=== PATIENT | male | born 1980 | race Caucasian/White ===

== ENCOUNTER 2022-02-26 17:39 | Outpatient (CLI) | payer SELFPAY ==
--- NOTE | 2022-02-26 17:47 | CT_ITS ---
STUDY: CT BRAIN WITH AND WITHOUT CONTRAST REASON FOR EXAM: Male, 41 years old. MASS? PRESSURE RT TEMPORAL AREA RADIATION DOSAGE (If Supplied By Facility): CTDIvol = ( 44.99 ) mGy, DLP = ( 1682.21 ) mGycm TECHNIQUE: Transaxial CT imaging of the brain was performed pre and post contrast administration. The examination was performed with intravenous administration of IV 100mL Isovue-300. Individualized dose optimization techniques were used for this CT. COMPARISON: None. FINDINGS: BRAIN: No acute bleed. No edema. Ho-white matter differentiation is maintained. No abnormal enhancement or enhancing mass lesion on the postcontrast images. VENTRICLES AND SULCI: Not dilated. EXTRA-AXIAL: No hemorrhage, fluid collection, or mass. CALVARIUM / SKULL BASE: Unremarkable. FACE/SINUSES: Visualized paranasal sinuses and mastoid air cells are clear. SOFT TISSUES: Unremarkable. Other: Soft tissue attenuation in the external auditory canals likely cerumen. CT/Brain/Head W/WO Contrast IMPRESSION: Unremarkable unenhanced and enhanced CT scan of the brain. Electronically Signed: Brenda Madera MD at 5:55 EDT ,
== END 2022-02-26 23:59 | disposition home or self-care (01) ==
PROVIDERS: PCP Family Medicine; Visit Provider Family Medicine
DX: R42 Dizziness and giddiness (principal)
CPT/HCPCS: 70470; Q9967

== ENCOUNTER → 2025-09-19 | Outpatient (CLI) | payer SELFPAY ==
--- NOTE | 2025-09-19 12:38 | VDLE_ITS ---
Reason For Study VL/Venous Duplex US, Unilateral
== END | disposition home or self-care (01) ==
LOC: CVS 12:37
PROVIDERS: Referring Provider Physician Assistant; Visit Provider Physician Assistant
DX: I83.811 Varicose veins of right lower extremity with pain (principal); I87.2 Venous insufficiency (chronic) (peripheral)
CPT/HCPCS: 93971